=== PATIENT | male | born 1960 | race Caucasian/White ===

== ENCOUNTER → 2023-08-02 | Outpatient (CLI) | payer MEDICAID, SELFPAY | END | disposition home or self-care (01) | LOC: LAB 15:25 | PROVIDERS: PCP Urology; Referring Provider Urology; Visit Provider Urology | DX: Z12.5 Encounter for screening for malignant neoplasm of prostate (principal) | CPT/HCPCS: 84153; 36415; G0103 ==

== ENCOUNTER → 2023-08-08 | Outpatient (CLI) | payer MEDICAID, SELFPAY ==
[2023-08-10 13:08] LABS: PSA, Free 1.31 ng/mL; PSA, Free % 12.7 % (.)
== END | disposition home or self-care (01) ==
PROVIDERS: PCP Urology; Referring Provider Urology; Visit Provider Urology
DX: Z12.5 Encounter for screening for malignant neoplasm of prostate (principal)
CPT/HCPCS: 36415; 84153; 84154

== ENCOUNTER → 2024-01-03 | Outpatient (CLI) | payer SELFPAY ==
[2024-01-04 13:08] LABS: PSA, Free 1.29 ng/mL; PSA, Free % 13.2 % (.)
== END | disposition home or self-care (01) ==
LOC: LAB 09:59
PROVIDERS: PCP Urology; Referring Provider Urology; Visit Provider Urology
DX: R97.20 Elevated prostate specific antigen [PSA] (principal)
CPT/HCPCS: 84153; 84154

== ENCOUNTER → 2025-01-08 | Outpatient (CLI) | payer SELFPAY ==
[2025-01-09 14:09] LABS: PSA, Free 1.12 ng/mL; PSA, Free % 12.8 % (.); PSA, Total Ultrasensitive 8.770 ng/mL (0.000-4.000)
== END | disposition home or self-care (01) ==
PROVIDERS: PCP Urology; Referring Provider Urology; Visit Provider Urology
DX: N40.1 Benign prostatic hyperplasia with lower urinary tract symptoms (principal)
CPT/HCPCS: 36415; 84153; 84154

== ENCOUNTER → 2025-02-16 | Outpatient (CLI) | payer SELFPAY ==
--- NOTE | 2025-02-16 08:00 | PROSBIL_PTH ---
PATIENT: NGOC GRIGGS LOC: [facility] U#:[id number] AGE/SX: 64/M ROOM: RE02/16/[address]: Dr. Naveed Knowles MD : [id number] BED: DIS: 02/16/2025 SPEC #: [id number] RECD: 02/16/25 14:50 STATUS: JORDAN REJoyce #: [id number] SUKI: 02/16/25 08:[address]: Naveed Knowles DEPT: SURGICAL PATHOLOGY RECD BY: Vipin John Tissues: A - PROSTATE RIGHT B - PROSTATE RIGHT C - PROSTATE RIGHT D - PROSTATE LEFT E - PROSTATE LEFT F - PROSTATE LEFT Procedures: Immunohistochemical Stains Surgery Specimen Level IV HEADER OPERATION: Prostate biopsy PRE-OP DIAGNOSIS: Elevated PSA TISSUE SUBMITTED: A - Right apex, B - Right mid, C - Right base, D - Left apex, E - Left mid, F - Left base MICROSCOPIC DIAGNOSIS A. Prostate, right, apex, biopsy: * Benign prostatic tissue B. Prostate, right, mid, biopsy: * Atypical small acinar proliferation, suspicious for malignancy (See note) Note: Immunohistochemical staining shows some AMACR without basal cell staining supporting the diagnosis. C. Prostate, right, base, biopsy: * Atypical small acinar proliferation, suspicious for malignancy (See note) Note: Immunohistochemical staining shows some AMACR without basal cell staining supporting the diagnosis. D. Prostate, left, apex, biopsy: * Benign prostatic tissue E. Prostate, left, mid, biopsy: * Benign prostatic tissue F. Prostate, left, base, biopsy: * Benign prostatic tissue MICROSCOPIC DESCRIPTION Slides are reviewed. All matched controls reacted appropriately. These tests were developed and their performance characteristics determined by [facility]. They may not have been cleared or approved by the [place] Food and Drug Administration. The FDA has determined that such clearance or approval is not necessary. The above immunohistochemical markers are viewed by the Pathologist. GROSS DESCRIPTION Received in 6 formalin containers labeled with the patient's name and date of . Designated as: A. RA are 2 fragmented rothman tissue cores, 1.4 cm and 1.6 cm in length by 0.1 cm in diameter. Entirely submitted in 1 cassette. B. RM are 2 rothman tissue cores, 1.4 cm and 1.9 cm in length by 0.1 cm in diameter. Entirely submitted in 1 cassette. C. RB are 2 rothman tissue cores, 1.6 cm and 1.7 cm in length by 0.1 cm in diameter. Entirely submitted in 1 cassette. D. LA, are 2 fragmented rothman tissue cores, 1.4 cm and 1.9 cm in length by 0.1 cm in diameter. Entirely submitted in 1 cassette. E. LM are 2 rothman tissue cores, each measuring 1.4 cm in length by 0.1 cm in diameter. Entirely submitted in 1 cassette. F. LB are 2 rothman tissue cores, 1.6 cm and 1.9 cm in length by 0.1 cm in diameter. Entirely submitted in 1 cassette. IN 5CPT:[id number]
== END | disposition home or self-care (01) ==
LOC: LABSPEC 15:09
PROVIDERS: Referring Provider Urology; Visit Provider Urology
DX: R97.20 Elevated prostate specific antigen [PSA] (principal)
CPT/HCPCS: 88305; 88342